=== PATIENT | female | born 1950 | race Caucasian/White ===

== ENCOUNTER 2016-10-19 10:56 | Day surgery (SDC) | payer BC ==
--- NOTE | ~2016-10-19 | EGD ---
EGD REPORT [facility] [address] [place] [address] NAME: THU NIETO : [birth year] [place]US [place] [facility] [place] [id number] AGE: 66 ADM/REG DATE : 10/19/16 MR#: [id number] REPORT SERV DATE: 10/19/16 DICTATED BY: HONEY CASPER DATE: 10/19/16 REPORT STATUS : Draft TRANSCRIBED BY: [facility] DATE: 10/19/16 Endoscopy Center Patient Name: Thu Nieto Date of : 1950 Attending MD: KILEY CASPER MD Procedure Date No Time: 10/19/2016 Procedure: Upper GI endoscopy Indications: Dysphagia, For therapy of esophageal stenosis Referring MD: Ileana MAX Medicines: See the Anesthesia note for documentation of the administered medications Complications: No immediate complications. Estimated blood loss: Minimal. Procedure: Pre-Anesthesia Assessment: - ASA Grade Assessment: II - A patient with mild systemic disease. - Prior to the procedure, a History and Physical was performed, and patient medications and allergies were reviewed. The patient's tolerance of previous anesthesia was also reviewed. The risks and benefits of the procedure and the sedation options and risks were discussed with the patient. All questions were answered, and informed consent was obtained. Prior Anticoagulants: The patient has taken no previous anticoagulant or antiplatelet agents. After reviewing the risks and benefits, the patient was deemed in satisfactory condition to undergo the procedure. After obtaining informed consent, the endoscope was passed under direct vision. Throughout the procedure, the patient's blood pressure, pulse, and oxygen saturations were monitored continuously. The GIF H190 [id number] was introduced through the mouth, and advanced to the gastric cardia. The upper GI endoscopy was accomplished without difficulty. The patient tolerated the procedure well. Findings: Ringed esophagus, with multiple rings. A guidewire was placed and the scope was withdrawn. Dilation was performed with a Savary dilator with mild resistance at 36 Fr, moderate resistance at 38 Fr and moderate resistance at 42 Fr. Estimated blood loss was minimal. Impression: - Ringed esophagus, with multiple rings. Recommendation: - Patient has a contact number available for EGD REPORT [address] [address] NAME: THU NIETO : [birth year] [place]US [place] [facility] [place] [id number] AGE: 66 ADM/REG DATE : 10/19/16 MR#: [id number] REPORT SERV DATE: 10/19/16 DICTATED BY: HONEY CASPER DATE: 10/19/16 REPORT STATUS : Draft TRANSCRIBED BY: [facility] DATE: 10/19/16 emergencies. The signs and symptoms of potential delayed complications were discussed with the patient. Return to normal activities tomorrow. Written discharge instructions were provided to the patient. - Regular diet. - Discharge patient to home. - Repeat the upper endoscopy in 1 week for retreatment. Procedure Code(s): --- Professional --- 93364, Esophagoscopy, flexible, transoral; with insertion of guide wire followed by passage of dilator(s) over guide wire Diagnosis Code(s): --- Professional --- R13.10, Dysphagia, unspecified K22.2, Esophageal obstruction CPT copyright 2013 [employer]. All rights reserved. The codes documented in this report are preliminary and upon development disability specialist review may be revised to meet current compliance requirements. KILEY CASPER MD 10/19/2016 1:08 PM This report has been signed electronically. Number of Addenda: 0 Note Initiated On: 10/19/2016 12:49 PM Scope Withdrawal Time 0 hours 0 minutes 0 seconds [id number] [place] [id number]
[~2016-10-19 10:56] MED LIST: ASAB PO; LEXAPRO20 PO; LOTREL1 CA2 PO; PRAVAC PO; PRILO PO; WELLXL150 PO; X25 PO
== END 2016-10-19 23:59 | disposition home or self-care (01) ==
LOC: DMU 10:56
PROVIDERS: Internal Medicine Gastroenterology
PROC: 0D757ZZ Dilation of Esophagus, Via Natural or Artificial Opening (ICD-10-PCS; principal; 2016-10-19 12:30)
DX: K22.2 Esophageal obstruction (principal); R13.10 Dysphagia, unspecified; I10 Essential (primary) hypertension; E78.5 Hyperlipidemia, unspecified; K21.9 Gastro-esophageal reflux disease without esophagitis; C76.0 Malignant neoplasm of head, face and neck; F41.9 Anxiety disorder, unspecified; Z86.73 Personal history of transient ischemic attack (TIA), and cerebral infarction without residual deficits; F32.9 Major depressive disorder, single episode, unspecified; Z88.8 Allergy status to other drugs, medicaments and biological substances; M81.0 Age-related osteoporosis without current pathological fracture; Z90.710 Acquired absence of both cervix and uterus; H26.9 Unspecified cataract; Z79.899 Other long term (current) drug therapy

== ENCOUNTER 2016-10-26 13:30 | Day surgery (SDC) | payer BC ==
--- NOTE | ~2016-10-26 | EGD ---
EGD REPORT [facility] [address] [place] [place] [address] NAME: THU NIETO : [birth year] STATUS : REG [facility] PAT#: [id number] AGE: 66 ADM/REG DATE : 10/26/16 MR#: [id number] REPORT SERV DATE: 10/26/16 DICTATED BY: HONEY CASPER DATE: 10/26/16 REPORT STATUS : Draft TRANSCRIBED BY: [facility] DATE: 10/26/16 Endoscopy Center Patient Name: Thu Nieto Date of : 1950 Attending MD: KILEY CASPER MD Procedure Date No Time: 10/26/2016 Procedure: Upper GI endoscopy Indications: Dysphagia, For therapy of esophageal stenosis Referring MD: Ileana MAX Medicines: See the Anesthesia note for documentation of the administered medications Complications: No immediate complications. Estimated blood loss: Minimal. Procedure: Pre-Anesthesia Assessment: - ASA Grade Assessment: II - A patient with mild systemic disease. - Prior to the procedure, a History and Physical was performed, and patient medications and allergies were reviewed. The patient's tolerance of previous anesthesia was also reviewed. The risks and benefits of the procedure and the sedation options and risks were discussed with the patient. All questions were answered, and informed consent was obtained. Prior Anticoagulants: The patient has taken no previous anticoagulant or antiplatelet agents. After reviewing the risks and benefits, the patient was deemed in satisfactory condition to undergo the procedure. After obtaining informed consent, the endoscope was passed under direct vision. Throughout the procedure, the patient's blood pressure, pulse, and oxygen saturations were monitored continuously. The GIF H190 [id number] was introduced through the mouth, and advanced to the gastric cardia. The upper GI endoscopy was accomplished without difficulty. The patient tolerated the procedure well. Findings: Ringed esophagus, with multiple rings. A guidewire was placed and the scope was withdrawn. Dilation was performed with a Savary dilator with mild resistance at 39 Fr, mild resistance at 42 Fr and moderate resistance at 45 Fr. Estimated blood loss was minimal. Impression: - Ringed esophagus, with multiple rings. Esophagus dilated EGD REPORT [address] [address] NAME: THU NIETO : [birth year] [place] [facility] [place] [id number] AGE: 66 ADM/REG DATE : 10/26/16 MR#: [id number] REPORT SERV DATE: 10/26/16 DICTATED BY: HONEY CASPER DATE: 10/26/16 REPORT STATUS : Draft TRANSCRIBED BY: [employer] DATE: 10/26/16 Recommendation: - Patient has a contact number available for emergencies. The signs and symptoms of potential delayed complications were discussed with the patient. Return to normal activities tomorrow. Written discharge instructions were provided to the patient. - Clear liquid diet today. - Discharge patient to home. - Continue present medications. - If you have ant chest pain, abdominal pain, bleeding or fever or chills please call offive at [phone] or after hours call my answering service at [phone]. If you cannot get hold of us please proceed to the [facility] emergency room Procedure Code(s): --- Professional --- 30853, Esophagoscopy, flexible, transoral; with insertion of guide wire followed by passage of dilator(s) over guide wire Diagnosis Code(s): --- Professional --- R13.10, Dysphagia, unspecified K22.2, Esophageal obstruction CPT copyright 2013 [employer]. All rights reserved. The codes documented in this report are preliminary and upon airset molder review may be revised to meet current compliance requirements. KILEY CASPER MD 10/26/2016 2:47 PM This report has been signed electronically. Number of Addenda: 0 Note Initiated On: 10/26/2016 2:28 PM Scope Withdrawal Time 0 hours 0 minutes 0 seconds [id number] [place] [address]
== END 2016-10-26 23:59 | disposition home or self-care (01) ==
LOC: DMU 13:30
PROVIDERS: Internal Medicine Gastroenterology
PROC: 0D758ZZ Dilation of Esophagus, Via Natural or Artificial Opening Endoscopic (ICD-10-PCS; principal; 2016-10-26 14:30)
DX: K22.2 Esophageal obstruction (principal); I10 Essential (primary) hypertension; K21.9 Gastro-esophageal reflux disease without esophagitis; H26.9 Unspecified cataract; F32.9 Major depressive disorder, single episode, unspecified; M81.0 Age-related osteoporosis without current pathological fracture; E78.00 Pure hypercholesterolemia, unspecified; F41.9 Anxiety disorder, unspecified; Z98.890 Other specified postprocedural states; Z79.899 Other long term (current) drug therapy; Z86.73 Personal history of transient ischemic attack (TIA), and cerebral infarction without residual deficits; Z90.710 Acquired absence of both cervix and uterus; Z88.8 Allergy status to other drugs, medicaments and biological substances